=== PATIENT | female | born 1955 | race Caucasian/White ===

== ENCOUNTER 2016-12-08 05:44 | Day surgery (SDC) | payer BC ==
[~2016-12-08] VITALS: Ht 167.6 cm; Wt 57.7 kg
[~2016-12-08 05:44] MED LIST: ASPI-131; CETI-115 PO; EMOL1CRE VAGINALLY; FOLI1TAB15 PO; HYDR200T PO; IBUP200T53; METH2.5T6 PO; MULT-206 PO; MULT-934 PO; PSEU30TA PO; [UNRECOGNIZED DRUG - CODE] PO; [UNRECOGNIZED DRUG - CODE] PO
--- OUTSIDE RECORDS SUMMARY | 2016-12-08 05:49 | XMS REPORT | Referral Summary ---
Author Author [facility] Organization [facility] Address Unknown Phone Unavailable Care Team Providers Care Meteorology Instructor Name Role Phone Ashok Daniels Primary Care Physician [phone] Encounter [facility] [id number] Date(s): 10/01/15 - 10/01/15 [facility] [address] [place], [place] [address] Discharge Diagnosis: Rheumatoid arthritis Discharge Diagnosis: Perennial non-allergic rhinitis Discharge Diagnosis: Dysfunction of left Eustachian tube Discharge Disposition: 01-Home or Self Care Attending Physician: Finn Cazares MD Admitting Physician: Finn Cazares MD Vital Signs No data available for this section Problem List Condition Effective Dates Status Health Status Informant Anxiety(Confirmed) Resolved Rheumatoid Active arthritis(Confirmed) Allergies, Adverse Reactions, Alerts No Known Allergies Medications diclofenac sodium 50 mg oral delayed release tablet See Instructions, TAKE ONE TABLET BY MOUTH TWICE A DAY NEEDED WITH FOOD, # 60 tabs, 2 Refill(s), Pharmacy: [facility] #[id number], can hold until next refill needed., TAKE ONE TABLET BY MOUTH TWICE A DAY NEEDED WITH FOOD Start Date: 06/23/15 Status: Ordered folic acid 1 mg oral tablet See Instructions, TAKE TWO TABLETS BY MOUTH ONCE A DAY, # 180 tabs, 3 Refill(s) , Pharmacy: [facility] #[id number], can hold until next refill needed, TAKE TWO TABLETS BY MOUTH ONCE A DAY Start Date: 06/23/15 Status: Ordered methotrexate 2.5 mg oral tablet 12.5 mg 5 tabs, Oral, qWeek, # 25 tabs, 3 Refill(s), Pharmacy: [facility] #[id number], can hold until next refill needed., 5 tabs Oral qWeek Start Date: 06/23/15 Status: Ordered Results No data available for this section Immunizations Vaccine Date Refusal Reason influenza virus vaccine, inactivated1 06/12/14 1Result Comment: [06/12/2014] See scanned document. Procedures Procedure Date Related Diagnosis Body Site Nasal endoscopy, diagnostic, unilateral or 10/01/15 bilateral (separate procedure).. Bunion surgery w/metal pin 2009 Social History Social History Type Response Smoking Status Never smoker Assessment and Plan Extracted from: Title: Office Visit Note Author: Finn Cazares MD Date: 10/01/15 Assessment/Plan 1.Perennial non-allergic rhinitis Ordered: Nasal Endoscopy, Diagnostic, Unilateral Or Bilateral (Separate Procedure) 58110 2.Dysfunction of left Eustachian tube Ordered: Office Visit Level 3 Est 61697 Pure Tone Audiometry (Threshold); Air [facility] Bone 33152 Tympanometry (Impedance Testing) 57811 3.Rheumatoid arthritis Ordered: Office Visit Level 3 Est 61221
--- OUTSIDE RECORDS SUMMARY | 2016-12-08 05:49 | XMS REPORT | Referral Summary ---
Author Organization Unknown Address Unknown Phone Unavailable Care Team Providers Care E Commerce Marketing Analyst Name Role Phone Ashok Daniels Primary Care Physician [phone] Encounter [facility] [id number] Date(s): 10/20/14 - 10/20/14 [facility] Rhe[facility]ology [address], [place] [address] Discharge Diagnosis: Encounter for long-term (current) use of high-risk medication Discharge Diagnosis: Rheumatoid arthritis Discharge Diagnosis: Osteopenia Discharge Disposition: Home or Self Care Attending Physician: Bertha Cummins MD Admitting Physician: Bertha Cummins MD Referring Physician: Evan Daniels MD Vital Signs Most recent to 1 oldest [Reference Range]: Temperature Oral 36.7 degC [35.8-37.3 degC] (10/20/14 2:49 PM) Peripheral Pulse 70 bpm Rate [60-100 bpm] (10/20/14 2:49 PM) Blood Pressure 108/70 mmHg [90-140/60-90 mmHg] (10/20/14 2:49 PM) Problem List Condition Effective Dates Status Health Status Informant Anxiety(Confirmed) Active Rheumatoid Active arthritis(Confirmed) Allergies, Adverse Reactions, Alerts No Known Medication Allergies Medications diclofenac sodium 50 mg oral delayed release tablet See Instructions, TAKE ONE TABLET BY MOUTH TWICE A DAY NEEDED WITH FOOD, # 60 tabs, 5 Refill(s), eRx: [facility] #[id number], TAKE ONE TABLET BY MOUTH TWICE A DAY NEEDED WITH FOOD Special Instructions: TAKE ONE TABLET BY MOUTH TWICE A DAY NEEDED WITH FOOD Start Date: 01/22/14 Status: Ordered folic acid 1 mg oral tablet See Instructions, TAKE TWO TABLETS BY MOUTH ONCE A DAY, # 180 tabs, 1 Refill(s) , eRx: [facility] #[id number], TAKE TWO TABLETS BY MOUTH ONCE A DAY Special Instructions: TAKE TWO TABLETS BY MOUTH ONCE A DAY Start Date: 09/22/14 Status: Ordered methotrexate 2.5 mg oral tablet 6 tabs, Oral, qWeek, # 30 tabs, 2 Refill(s), Pharmacy: [facility] #[id number] , Please note decrease in dose. With next refill, does not need at this time., 6 tabs Oral qWeek Start Date: 10/20/14 Status: Ordered Results Hematology Most recent to 1 oldest [Reference Range]: WBC [4.8-10.8 K/uL] 5.5 K/uL (10/20/14 3:24 PM) RBC [4.00-5.20 M/uL] 4.57 M/uL (10/20/14 3:24 PM) Hgb [12.0-16.0 12.0 gm/dL gm/dL] (10/20/14 3:24 PM) Hct [37.0-47.0 %] 38.6 % (10/20/14 3:24 PM) MCV [82.0-99.0 fL] 84.5 fL (10/20/14 3:24 PM) MCH [27.0-32.0 pg] 26.3 pg *LOW* (10/20/14 3:24 PM) MCHC [32.0-36.0 31.1 gm/dL gm/dL] *LOW* (10/20/14 3:24 PM) RDW [11.5-14.5 %] 14.7 % *HI* (10/20/14 3:24 PM) Platelet [150-400 266 K/uL K/uL] (10/20/14 3:24 PM) MPV [8.8-14.8 fL] 9.8 fL (10/20/14 3:24 PM) Immature 0.2 % Granulocytes (10/20/14 3:24 PM) [0.0-1.0 %] Neutrophils [51-75 64 % %] (10/20/14 3:24 PM) Lymphocytes [20-46 23 % %] (10/20/14 3:24 PM) Monocytes [4-11 %] 11 % (10/20/14 3:24 PM) Eosinophils [0-4 %] 1 % (10/20/14 3:24 PM) Basophils [0-2 %] 0 % (10/20/14 3:24 PM) Neutro Absolute 3.47 THOUS [1.90-7.00 THOUS] (10/20/14 3:24 PM) Lymph Absolute 1.28 THOUS [0.80-3.30 THOUS] (10/20/14 3:24 PM) Frontier Absolute 0.62 THOUS [0.30-1.00 THOUS] (10/20/14 3:24 PM) Eos Absolute 0.06 THOUS [0.00-0.50 THOUS] (10/20/14 3:24 PM) Baso Absolute 0.02 THOUS [0.00-0.20 THOUS] (10/20/14 3:24 PM) Chemistry Most recent to 1 oldest [Reference Range]: Sodium Lvl [135-144 142 mEq/L mEq/L] (10/20/14 3:24 PM) Potassium Lvl 4.1 mEq/L [3.5-5.2 mEq/L] (10/20/14 3:24 PM) Chloride [99-111 106 mEq/L mEq/L] (10/20/14 3:24 PM) CO2 [22-31 mEq/L] 25 mEq/L (10/20/14 3:24 PM) AGAP [3-20] 11 (10/20/14 3:24 PM) BUN [10-20 mg/dL] 13 mg/dL (10/20/14 3:24 PM) Glucose Lvl [70-99 95 mg/dL mg/dL] (10/20/14 3:24 PM) Creatinine Lvl 0.77 mg/dL [0.57-1.11 mg/dL] (10/20/14 3:24 PM) eGFR [>60 mL/min] >60 mL/min 1 (10/20/14 3:24 PM) Calcium Lvl 10.0 mg/dL [8.9-10.5 mg/dL] (10/20/14 3:24 PM) Albumin Lvl [3.5-5.0 4.5 gm/dL gm/dL] (10/20/14 3:24 PM) Total Protein 7.1 gm/dL [6.2-8.1 gm/dL] (10/20/14 3:24 PM) Globulin [1.8-4.0 2.6 gm/dL gm/dL] (10/20/14 3:24 PM) ALT [0-55 unit/L] 36 unit/L (10/20/14 3:24 PM) AST [5-34 unit/L] 40 unit/L *HI* (10/20/14 3:24 PM) Alk Phos [40-150 74 unit/L unit/L] (10/20/14 3:24 PM) Bili Total [0.2-1.2 0.5 mg/dL mg/dL] (10/20/14 3:24 PM) 1Result Comment: Multiply eGFR results by 1.21 for race. Immunizations Vaccine Date Refusal Reason influenza virus vaccine, inactivated1 06/12/14 1Result Comment: [06/12/2014] See scanned document. Procedures Procedure Date Related Diagnosis Body Site Bunionectomy Social History Social History Type Response Smoking Status Never smoker Assessment and Plan No data available for this section
--- OUTSIDE RECORDS SUMMARY | 2016-12-08 05:49 | XMS REPORT | Referral Summary ---
Author Author [facility] Organization [facility] Address Unknown Phone Unavailable Care Team Providers Care It Sales Executive Name Role Phone Daniels Ashok Primary Care Physician [phone] Encounter [facility] [id number] Date(s): 03/01/16 - 03/01/16 [facility] [address], [place] [address] Discharge Diagnosis: High risk medication use Discharge Diagnosis: Other specified disorders of bone density and structure, other site Discharge Diagnosis: Osteopenia Discharge Diagnosis: Other specified rheumatoid arthritis, multiple sites Discharge Disposition: 01-Home or Self Care Attending Physician: Bertha Cummins MD Admitting Physician: Bertha Cummins MD Vital Signs Most recent to 1 oldest [Reference Range]: Temperature Oral 36.5 degC [35.8-37.3 degC] (03/01/16 9:08 AM) Peripheral Pulse 66 bpm Rate [60-100 bpm] (03/01/16 9:08 AM) Respiratory Rate 18 br/min [14-20 br/min] (03/01/16 9:08 AM) Blood Pressure 102/64 mmHg [90-140/60-90 mmHg] (03/01/16 9:08 AM) Problem List Condition Effective Dates Status Health Status Informant Anxiety(Confirmed) Resolved Osteopenia(Confirmed Active ) Rheumatoid Active arthritis(Confirmed) Allergies, Adverse Reactions, Alerts No Known Allergies Medications diclofenac sodium 50 mg oral delayed release tablet See Instructions, TAKE ONE TABLET BY MOUTH TWICE A DAY NEEDED WITH FOOD, # 60 tabs, 2 Refill(s), Pharmacy: [facility] #[id number], can hold until next refill needed., TAKE ONE TABLET BY MOUTH TWICE A DAY NEEDED WITH FOOD Start Date: 03/01/16 Status: Ordered folic acid 1 mg oral tablet See Instructions, TAKE TWO TABLETS BY MOUTH ONCE A DAY, # 180 tabs, 3 Refill(s) , Pharmacy: [facility] #[id number], can hold until next refill needed, TAKE TWO TABLETS BY MOUTH ONCE A DAY Start Date: 03/01/16 Status: Ordered methotrexate 2.5 mg oral tablet 12.5 mg 5 tabs, Oral, qWeek, please note the change in dose. deactivate prior, # 25 tabs, 3 Refill(s), Pharmacy: [facility] #[id number], please note change in dose. deactivate prior., 5 tabs Oral qWeek,Instr:please note the change in dose. deactivat... Start Date: 03/01/16 Status: Ordered Results Hematology Most recent to 1 oldest [Reference Range]: WBC [4.8-10.8 4.9 10*3/uL 10*3/uL] (03/01/16 9:34 AM) RBC [4.00-5.20] 4.11 (03/01/16 9:34 AM) Hgb [12.0-16.0 10.0 gm/dL gm/dL] *LOW* (03/01/16 9:34 AM) Hct [37.0-47.0 %] 32.3 % *LOW* (03/01/16 9:34 AM) MCV [82.0-99.0 fL] 78.6 fL *LOW* (03/01/16 9:34 AM) MCH [27.0-32.0 pg] 24.3 pg *LOW* (03/01/16 9:34 AM) MCHC [32.0-36.0 31.0 gm/dL gm/dL] *LOW* (03/01/16 9:34 AM) RDW [11.5-14.5 %] 17.5 % *HI* (03/01/16 9:34 AM) Platelet [150-400 311 10*3/uL 10*3/uL] (03/01/16 9:34 AM) MPV [8.8-14.8 fL] 10.0 fL (03/01/16 9:34 AM) Immature 0.0 % Granulocytes (03/01/16 9:34 AM) [0.0-1.0 %] Neutrophils [51-75 61 % %] (03/01/16 9:34 AM) Lymphocytes [20-46 25 % %] (03/01/16 9:34 AM) Monocytes [4-11 %] 14 % *HI* (03/01/16 9:34 AM) Eosinophils [0-4 %] 1 % (03/01/16 9:34 AM) Basophils [0-2 %] 0 % (03/01/16 9:34 AM) Neutro Absolute 2.94 10*3 [1.90-7.00 10*3] (03/01/16 9:34 AM) Lymph Absolute 1.19 10*3 [0.80-3.30 10*3] (03/01/16 9:34 AM) [place] Absolute 0.68 10*3 [0.30-1.00 10*3] (03/01/16 9:34 AM) Eos Absolute 0.04 10*3 [0.00-0.50 10*3] (03/01/16 9:34 AM) Baso Absolute 0.01 10*3 [0.00-0.20 10*3] (03/01/16 9:34 AM) Chemistry Most recent to 1 oldest [Reference Range]: Sodium Lvl [135-144 139 mEq/L mEq/L] (03/01/16 9:34 AM) Potassium Lvl 4.4 mEq/L [3.5-5.2 mEq/L] (03/01/16 9:34 AM) Chloride [99-111 107 mEq/L mEq/L] (03/01/16 9:34 AM) CO2 [22-31 mEq/L] 26 mEq/L (03/01/16 9:34 AM) AGAP [3-20] 6 (03/01/16 9:34 AM) BUN [10-20 mg/dL] 13 mg/dL (03/01/16 9:34 AM) Glucose Lvl [70-99 74 mg/dL mg/dL] (03/01/16 9:34 AM) Creatinine Lvl 0.80 mg/dL [0.57-1.11 mg/dL] (03/01/16 9:34 AM) eGFR [>60 mL/min] >60 mL/min 1 (03/01/16 9:34 AM) Calcium Lvl 9.4 mg/dL [8.9-10.5 mg/dL] (03/01/16 9:34 AM) Albumin Lvl [3.4-4.8 4.4 gm/dL gm/dL] (03/01/16 9:34 AM) Total Protein 6.7 gm/dL 2 [6.0-7.6 gm/dL] (03/01/16 9:34 AM) Globulin [1.8-4.0 2.3 gm/dL gm/dL] (03/01/16 9:34 AM) ALT [0-55 U/L] 20 U/L (03/01/16 9:34 AM) AST [5-34 U/L] 26 U/L (03/01/16 9:34 AM) Alk Phos [40-150 69 U/L U/L] (03/01/16 9:34 AM) Bili Total [0.2-1.2 0.7 mg/dL mg/dL] (03/01/16 9:34 AM) 1Result Comment: Multiply eGFR results by 1.21 for race. 2Result Comment: Please note new reference range for adult Protein. Immunizations Vaccine Date Refusal Reason influenza virus vaccine, inactivated1 06/12/14 1Result Comment: [06/12/2014] See scanned document. Procedures Procedure Date Related Diagnosis Body Site Collection of venous blood by venipuncture 03/01/16 Bunion surgery w/metal pin 2009 Social History Social History Type Response Smoking Status Never smoker Assessment and Plan Extracted from: Title: Ambulatory Patient Education Author: Bertha Cummins MD Date: Family Medicine Arthritis, Nonspecific Arthritis is inflammation of a joint. This usually means pain, redness, warmth or swelling are present. One or more joints may be involved. There are a number of types of arthritis. Your caregiver may not be able to tell what type of arthritis you have right away. CAUSES The most common cause of arthritis is the wear and tear on the joint ( osteoarthritis). This causes damage to the cartilage, which can break down over time. The knees, hips, back and neck are most often affected by this type of arthritis. Other types of arthritis and common causes of joint pain include: Sprains and other injuries near the joint. Sometimes minor sprains and injuries cause pain and swelling that develop hours later. Rheumatoid arthritis. This affects hands, feet and knees. It usually affects both sides of your body at the same time. It is often associated with chronic ailments, fever, weight loss and general weakness. Crystal arthritis. Gout and pseudo gout can cause occasional acute severe pain, redness and swelling in the foot, ankle, or knee. Infectious arthritis. Bacteria can get into a joint through a break in overlying skin. This can cause infection of the joint. Bacteria and viruses can also spread through the blood and affect your joints. Drug, infectious and allergy reactions. Sometimes joints can become mildly painful and slightly swollen with these types of illnesses. SYMPTOMS Pain is the main symptom. Your joint or joints can also be red, swollen and warm or hot to the touch. You may have a fever with certain types of arthritis, or even feel overall ill. The joint with arthritis will hurt with movement. Stiffness is present with some types of arthritis. DIAGNOSIS Your caregiver will suspect arthritis based on your description of your symptoms and on your exam. Testing may be needed to find the type of arthritis: Blood and sometimes urine tests. X-ray tests and sometimes CT or MRI scans. Removal of fluid from the joint (arthrocentesis) is done to check for bacteria, crystals or other causes. Your caregiver (or a specialist) will numb the area over the joint with a local anesthetic, and use a needle to remove joint fluid for examination. This procedure is only minimally uncomfortable. Even with these tests, your caregiver may not be able to tell what kind of arthritis you have. Consultation with a specialist (take out waitress) may be helpful. TREATMENT Your caregiver will discuss with you treatment specific to your type of arthritis. If the specific type cannot be determined, then the following general recommendations may apply. Treatment of severe joint pain includes: Rest. Elevation. Anti-inflammatory medication (for example, ibuprofen) may be prescribed. Avoiding activities that cause increased pain. Only take hwyi-haz-bvnqzny or prescription medicines for pain and discomfort as recommended by your caregiver. Cold packs over an inflamed joint may be used for 10 to 15 minutes every hour. Hot packs sometimes feel better, but do not use overnight. Do not use hot packs if you are diabetic without your caregiver's permission. A cortisone shot into arthritic joints may help reduce pain and swelling. Any acute arthritis that gets worse over the next 1 to 2 days needs to be looked at to be sure there is no joint infection. Long-term arthritis treatment involves modifying activities and lifestyle to reduce joint stress jarring. This can include weight loss. Also, exercise is needed to nourish the joint cartilage and remove waste. This helps keep the muscles around the joint strong. HOME CARE INSTRUCTIONS Do not take aspirin to relieve pain if gout is suspected. This elevates uric acid levels. Only take qztf-fiv-mkfuwuz or prescription medicines for pain, discomfort or fever as directed by your caregiver. Rest the joint as much as possible. If your joint is swollen, keep it elevated. Use crutches if the painful joint is in your leg. Drinking plenty of fluids may help for certain types of arthritis. Follow your caregiver's dietary instructions. Try low-impact exercise such as: Swimming. Water aerobics. Biking. Walking. Morning stiffness is often relieved by a warm shower. Put your joints through regular oatqx-qz-pxxrii. SEEK MEDICAL CARE IF: You do not feel better in 24 hours or are getting worse. You have side effects to medications, or are not getting better with treatment. SEEK IMMEDIATE MEDICAL CARE IF: You have a fever. You develop severe joint pain, swelling or redness. Many joints are involved and become painful and swollen. There is severe back pain and/or leg weakness. You have loss of bowel or bladder control. This information is not intended to replace advice given to you by your health care provider. Make sure you discuss any questions you have with your health care provider. Document Released: 09/06/2005 Document Revised: 08/20/2015 Document Reviewed: [facility]. Ophthalmology Basics of Medicine Management WHAT SHOULD I DO WHEN I AM TAKING MEDICINES? Read all of the labels and the inserts that come with your medicines. Review the information often. Talk with your pharmacist if you notice a change in the size, color, or shape of your medicines. Try to get all of your medicines at one pharmacy. The pharmacist will have all your information and will understand possible drug interactions. Ask your health care provider any questions that you have about your prescribed medicines and any eqxn-pxx-xdkvair medicines, vitamins, and herbal or dietary supplements that you take. It is important to make sure that nothing will interact with any of your prescribed medicines. WHAT SHOULD I KNOW ABOUT MY MEDICINES? Know the potential side effects for each medicine that you take. Know what each of your medicines looks like. This includes size, color, and shape. If you are getting confused and having trouble recognizing your different medicines, ask your health care provider or pharmacist about changing your medicines or helping you to identify them more easily. HOW CAN I TAKE MY MEDICINES SAFELY? Take medicines only as directed by your health care provider. Do not take more of your medicine than instructed. Do not take anyone else's medicines. Do not share your medicines with other people. Do not stop taking your medicines unless you have talked about that with your health care provider. You may need to avoid alcohol or certain foods or liquids with one or more of your medicines. Follow your health care provider's instructions. Do not split, mash, or chew your medicines unless your health care provider tells you to do so. Tell your health care provider if you have trouble swallowing your medicines. For every liquid medicine, use the dosing container that was provided. HOW SHOULD I ORGANIZE MY MEDICINES? Use a tool, such as a weekly pillbox, a written chart from your health care provider, a notebook, or your own calendar to organize your medicine schedule. If you have trouble recognizing your different medicines, keep them in their original bottles. Create reminders for taking your medicines. Use sticky notes, or use alarms on your watch, mobile device, or phone calendar. Your organization system should help you to remember the following information about each medicine: Name of the medicine. Dosage. Schedule. This includes the day and time when it should be taken. Appearance. This includes color, shape, size, and stamp. How to take your medicines. You may need to take them with or without certain foods, on an empty stomach, with fluids, or by following some other instruction. More advanced medicine management systems are also available. These offer weekly or monthly options that are complete with storage, alarms, and visual and audio prompts. Review your medicine schedule with a family member, friend, or caregiver. Other household members should understand your medicines. If you have trouble reading the names of your different medicines, ask your pharmacist to provide your medicines in containers with large print. If you take any medicines on an "as needed" basis, such as medicines for nausea or pain, it is important that you remember what you have taken and when you did so. Write down the following information each time you take an "as needed" medicine: the name, the dosage, and the date and time that you took it. HOW SHOULD I PLAN AHEAD FOR TRAVEL? Take your pillbox, medicines, and organization system with you when you travel. Have your medicines refilled before you leave for travel. This will ensure that you do not run out of your medicines while you are away from home. Always carry an updated list of your medicines with you. If there is an emergency, a respondent can quickly see what medicines you are taking. HOW SHOULD I STORE AND DISCARD MY MEDICINES? Store medicines in a cool, dry area away from light or as directed by your pharmacist or health care provider. The bathroom is not a good place for medicine storage because of heat and humidity. Store your medicines away from chemicals, medicines for your pet, and medicines of other household members. Keep medicines where children cannot reach them. Do not leave them on counters or bedside tables. Store them in high cabinets or on high shelves. Check expiration dates regularly. Do not take medicines. Discard medicines that are older than the expiration date. Learn about the best way to dispose of each medicine that you take. Find out if your local government recycling program, hospital, or pharmacy has a medicine take-back program for safe disposal. If not, some medicines may be mixed with inedible substances and thrown away in the trash in a sealed bag or empty container. WHAT SHOULD I REMEMBER? Tell your health care provider if you experience side effects, you have new symptoms, or you have other concerns. There may be dosing changes or alternative medicines that would be better for you. Review your medicines regularly with your health care provider. Ask if you need to continue to take each medicine, and discuss how well each one is working. Medicines, diet, medical conditions, weight changes, and other habits can all affect how medicines work. Refill your medicines early so that you do not risk running out. In case of an accidental overdose, call your local Poison Control Center at or visit your local emergency department immediately. This is important. WHAT SHOULD I KNOW ABOUT GIVING MEDICINES TO MY CHILD? Use positive reinforcement to help your child take necessary medicines. Try singing, cuddling, and rewards. Use only the syringes, droppers, dosing spoons, or dosing cups from your child's health care provider or pharmacist. Always wash your hands before giving medicines. Learn about the medicine policies at your child's school. Meet with the school nurse to review your child's medicine schedule in detail. Do not send oral medicines to school with your child. If your child has trouble taking medicine, forgets a dose, or spits it up , talk with his or her health care provider. Do not give qphe-clg-agzbfvt cough and cold medicines to your child who is younger than 2 years old, unless directed by his or her health care provider. Do not give your child aspirin unless instructed to do so by your child' s product responsibility liaison or environmental educator. Make sure that your child knows how to use an inhaler properly, if needed. This information is not intended to replace advice given to you by your health care provider. Make sure you discuss any questions you have with your health care provider. Document Released: 11/14/2011 Document Revised: 08/20/2015 Document Reviewed: [facility] Patient Information 2016 [employer]. No follow up information was provided. Extracted from: Title: Office Visit Note Author: Bertha Cummins MD Date: 03/01/16 Assessment/Plan 1.Other specified rheumatoid arthritis, multiple sites She has mildly active disease. We will increase the methotrexate 12.5 mg. continue diclofenac as needed. I will check a CRP today. Ordered: C-Reactive Protein (CRP) CBC w/ Differential Comprehensive Metabolic Panel 2.Osteopenia, We discussed taking calciumand also vitamin D. Other specified disorders of bone density and structure, other site Ordered: C-Reactive Protein (CRP) CBC w/ Differential Comprehensive Metabolic Panel 3.High risk medication use I will check her blood counts liver tests today. She did donate blood recently which may affect her blood counts. Follow-up in 4 months. Ordered: C-Reactive Protein (CRP) CBC w/ Differential Comprehensive Metabolic Panel
--- OUTSIDE RECORDS SUMMARY | 2016-12-08 05:49 | XMS REPORT | Continuity of Care Document ---
Author Author Marita Martinez RN Ambulatory Address [address] [place] [address] Phone Care Team Providers Care Textile Stylist Name Role Phone Evan Daniels PP Unavailable Payers Payer name Insurance type Covered libertarian ID Authorization(s) Unknown Problems Condition Effective Dates (start - stop) Clinical Status Rheumatoid Arthritis - *Chronic Rheumatoid Arthritis - *Chronic Family History Family Member Diagnosis Age At Onset Status Mother (Unknown) CVA (Stroke) Yes Father (Unknown) bleeding ulcers Yes Sister (Unknown) Cancer Yes Mother (Unknown) Cancer Yes Social History Social History Element Description Quantity alcohol 1 drink Allergies, Adverse Reactions, Alerts Substance Reaction Severity Status Unknown Medications Medication Instructions Dosage Effective Dates (start - stop) Status diclofenac sodium 50 mg tablet,delayed release take 1 tablet (50MG) by oral route 2 times every day as needed with food 50 MG - Active Plaquenil 200 mg tablet take 2 (400MG) by oral route every day 400 MG - Active Immunizations Vaccine Date Status Comments Unknown Results Test Name Date and Time Measure Units Reference Range Abnormal Flag Comments Panel Description: CBC WBC 09:11:00 4.7 K/uL 4.8-10.8 L RBC 09:11:00 4.80 M/uL 4.00-5.20 HGB 09:11:00 14.2 g/dl 12.0-16.0 HCT 09:11:00 43.3 % 37.0-47.0 MCV 09:11:00 90.2 fL 82.0-99.0 MCH 09:11:00 29.6 pg 27.0-32.0 MCHC 09:11:00 32.8 g/dL 32.0-36.0 RDW 09:11:00 12.7 % 11.5-14.5 MPV 09:11:00 10.0 fL 8.8-14.8 Platelet Count 09:11:00 272 K/uL 150-400 Immature Granulocytes 09:11:00 0.2 % 0.0-1.0 Absolute Neutrophils 09:11:00 2.79 THOUS 1.90-7.00 Absolute Lymphocytes 09:11:00 1.22 THOUS 0.80-3.30 Absolute Monocytes 09:11:00 0.58 THOUS 0.30-1.00 Absolute Eosinophils 09:11:00 0.07 THOUS 0.00-0.50 Absolute Basophils 09:11:00 0.01 THOUS 0.00-0.20 Neutrophils 09:11:00 60 % 51-75 Lymphocytes 09:11:00 26 % 20-46 Monocytes 09:11:00 12 % 4-11 H Eosinophils 09:11:00 2 % 0-4 Basophils 09:11:00 0 % 0-2 Testing performed at [facility] Reference Lab [address] [facility] [address] [employer] Kaveh Rangel MD Panel Description: Chemistry Profile Glucose 09:11:00 81 mg/dL 70-99 BUN 09:11:00 13 mg/dL 10-20 Creatinine 09:11:00 0.83 mg/dL 0.57-1.11 Calcium 09:11:00 9.9 mg/dL 8.9-10.5 Sodium 09:11:00 142 mEq/L 135-144 Potassium 09:11:00 4.1 mEq/L 3.5-5.2 Chloride 09:11:00 106 mEq/L 99-111 CO2 09:11:00 30 mEq/L 22-31 Albumin 09:11:00 4.5 g/dL 3.5-5.0 Bilirubin Total 09:11:00 0.6 mg/dL 0.2-1.2 Alkaline Phosphatase 09:11:00 71 U/L 40-150 Protein 09:11:00 7.0 g/dL 6.4-8.3 ALT (SGPT) 09:11:00 19 U/L 0-55 AST (SGOT) 09:11:00 26 U/L 5-34 Anion Gap 09:11:00 6 3-20 Globulin 09:11:00 2.5 g/dL 1.8-4.0 Testing performed at [facility] Reference Lab [address] [place] [address] [employer] Kaveh Rangel MD Panel Description: EGFR-[facility] eGFR 09:11:00 >60 mL/min >60 Multiply eGFR results by 1.21 for race.Testing performed at [facility] Reference [facility] [address] [place] [address] [employer] Kaveh Rangel MD Panel Description: C-Reactive Nlavxqa-HC-WQP C-Reactive Protein 09:11:00 <0.5 mg/dL <0.5 Testing performed at [facility] [address] [place] [address] [employer] Kaveh Rangel MD Panel Description: G-6-PD-QT Blood and RBC-AMS G-6-PD, Quant, RBC 09:11:00 10.4 U/g Hb Reference Range: 8.8 - 13.4Test Performed by:[address] [id number] Director: Andrea Paiz III, M.D.Testing performed at [address] [address] [employer] Andrea Paiz MD Vital Signs Date / Time: Height Weight Pulse Rate Blood Pressure Temperature /08:07:00 66.00 in 122.00 lbs 65 /min 118/72 mm[Hg] 98.4 F Procedures Procedure Date Unknown Encounters Encounter Location Date Patient Visit [facility] Patient Visit [facility] Patient Visit [facility] Advance Directives Directive Effective Date Unknown
--- OUTSIDE RECORDS SUMMARY | 2016-12-08 05:50 | XMS REPORT | Referral Summary ---
Author Author [facility] Organization [facility] Address Unknown Phone Unavailable Care Team Providers Care Weight Reducing Technician Name Role Phone Ashok Daniels Primary Care Physician [phone] Encounter [facility] [id number] Date(s): 09/17/15 - 09/17/15 [facility] [address] [place], [place] [address] Discharge Diagnosis: Rheumatoid arthritis Discharge Diagnosis: Deviated nasal septum Discharge Diagnosis: Acute otitis media Discharge Disposition: -Home or Self Care Attending Physician: Finn Cazares MD Admitting Physician: Finn Cazares MD Referring Physician: Huseyin Ceh MD Vital Signs No data available for this section Problem List Condition Effective Dates Status Health Status Informant Anxiety(Confirmed) Resolved Rheumatoid Active arthritis(Confirmed) Allergies, Adverse Reactions, Alerts No Known Allergies Medications cefdinir 300 mg oral capsule 300 mg 1 caps, Oral, q12hr, # 20 caps, 0 Refill(s), Pharmacy: [facility] # [id number], 1 caps Oral q12hr,x10 days Start Date: 09/17/15 Stop Date: 09/27/15 Status: Ordered diclofenac sodium 50 mg oral delayed release tablet See Instructions, TAKE ONE TABLET BY MOUTH TWICE A DAY NEEDED WITH FOOD, # 60 tabs, 2 Refill(s), [facility] #[id number], can hold until next refill needed., TAKE ONE TABLET BY MOUTH TWICE A DAY NEEDED WITH FOOD Start Date: 06/23/15 Status: Ordered folic acid 1 mg oral tablet See Instructions, TAKE TWO TABLETS BY MOUTH ONCE A DAY, # 180 tabs, 3 Refill(s) , [facility] #[id number], can hold until next refill needed, TAKE TWO TABLETS BY MOUTH ONCE A DAY Start Date: 06/23/15 Status: Ordered methotrexate 2.5 mg oral tablet 12.5 mg 5 tabs, Oral, qWeek, # 25 tabs, 3 Refill(s), Pharmacy: [facility] #[id number], can hold until next refill needed., 5 tabs Oral qWeek Start Date: 06/23/15 Status: Ordered Results No data available for this section Immunizations Vaccine Date Refusal Reason influenza virus vaccine, inactivated1 06/12/14 1Result Comment: [06/12/2014] See scanned document. Procedures Procedure Date Related Diagnosis Body Site Bunion surgery w/metal pin 2008 Social History Social History Type Response Smoking Status Never smoker Assessment and Plan Extracted from: Title: Ambulatory Patient Education Author: Finn Cazares MD Date: Family Medicine Pressure Equalization Tubes Pressure equalizing tubes (PE tubes) are small tubes that are placed through a tiny surgical cut in the eardrum. PE tubes are also called tympanostomy tubes or ventilation tubes. These tubes are usually placed because of: Frequent middle ear infections. Chronic fluid in the middle ear. Hearing or speech problems due to repeated middle ear infections or fluid build up. PE tubes help prevent: Infections Fluid build up. It is believed tubes do this because they keep the middle ear space full of air (ventilated). There are two kinds of PE tubes: Short term these tubes usually last only 6 to 9 months. They fall out on their own. meterman these stay in place longer than short term tubes. Often they have to be removed by the surgeon. Most PE tubes fall out after a while into the outer ear canal. The eardrum seals itself shut. The tube is easily removed from the ear canal by a caregiver or it falls out on its own. Children are usually given a mild, general anesthetic before surgery. This is something that puts them to sleep. Older children or adults may only need a local anesthetic. This means medicines are used to make the eardrum numb. BEFORE THE PROCEDURE Follow the instructions given by your surgeon as to how to prepare for this surgery. LET YOUR CAREGIVER KNOW ABOUT: Previous reactions to anesthesia. Reactions to anesthesia by anyone in your family. RISKS AND COMPLICATIONS There are few risks to this simple surgery. The anesthesia specialist will discuss the risks of anesthesia. Sometimes the eardrum does not heal after the tube falls out. If a hole in the eardrum persists, the hole can be repaired by minor surgery. AFTER THE PROCEDURE Follow your surgeon's instructions for care after surgery. Often eardrops are prescribed. There may be fluid draining from the ear for a few days after the surgery. Fluid may also drain in the future with colds. If hearing was decreased due to fluid build up, there should be an improvement right after the surgery. HOME CARE INSTRUCTIONS Because the PE tube opens a tiny hole between the outer and the middle ear, water can accidentally travel into the middle ear from the outside. Your surgeon may suggest earplugs. It is best to avoid: Dunking the head in bath water. Diving. SEEK MEDICAL CARE IF: Ear drainage that looks thick, smells bad or is bloody. Decreased hearing. Balance problems. Ear pain. SEEK IMMEDIATE MEDICAL CARE IF: Redness, tenderness or swelling of the ear canal or ear itself. Document Released: 01/19/2003 Document Revised: 10/21/2012 Document Reviewed: [facility] Patient Information 2015 [employer] [facility]. This information is not intended to replace advice given to you by your health care provider. Make sure you discuss any questions you have with your health care provider. No follow up information was provided. Extracted from: Title: Consult Note Author: Finn Cazares MD Date: 09/17/15 Assessment/Plan 1.Acute otitis media 2.Deviated nasal septum 3.Rheumatoid arthritis
--- OUTSIDE RECORDS SUMMARY | 2016-12-08 05:50 | XMS REPORT | Referral Summary ---
Author Author [facility] Organization [facility] Address Unknown Phone Unavailable Care Team Providers Care Manager Asset Name Role Phone Daniels Ashok Primary Care Physician [phone] Encounter [facility] [id number] Date(s): 02/22/15 - 02/22/15 [facility] [address] [place], [place] [address] Discharge Diagnosis: Rheumatoid arthritis Discharge Diagnosis: Encounter for long-term (current) use of high-risk medication Discharge Disposition: 01-Home or Self Care Attending Physician: Bertha Cummins MD Admitting Physician: Bertha Cummins MD Vital Signs Most recent to 1 oldest [Reference Range]: Peripheral Pulse 77 bpm Rate [60-100 bpm] (02/22/15 8:26 AM) Blood Pressure 124/75 mmHg [90-140/60-90 mmHg] (02/22/15 8:26 AM) Problem List Condition Effective Dates Status Health Status Informant Anxiety(Confirmed) Active Rheumatoid Active arthritis(Confirmed) Allergies, Adverse Reactions, Alerts No Known Medication Allergies Medications diclofenac sodium 50 mg oral delayed release tablet See Instructions, TAKE ONE TABLET BY MOUTH TWICE A DAY NEEDED WITH FOOD, # 60 tabs, 5 Refill(s), eRx: [facility] #[id number], TAKE ONE TABLET BY MOUTH TWICE A DAY NEEDED WITH FOOD Start Date: 01/22/14 Status: Ordered folic acid 1 mg oral tablet See Instructions, TAKE TWO TABLETS BY MOUTH ONCE A DAY, # 180 tabs, eRx: [facility] #[id number], TAKE TWO TABLETS BY MOUTH ONCE A DAY Start Date: 04/20/15 Status: Ordered methotrexate 2.5 mg oral tablet 12.5 mg 5 tabs, Oral, qWeek, # 25 tabs, 1 Refill(s), Pharmacy: [facility] #[id number], Dose decreased to 5 tabs weekly, 5 tabs Oral qWeek Start Date: 05/12/15 Status: Ordered Results Hematology Most recent to 1 oldest [Reference Range]: WBC [4.8-10.8 4.8 10*3/uL 10*3/uL] (02/22/15 8:52 AM) RBC [4.00-5.20 4.51 10*6/uL 10*6/uL] (02/22/15 8:52 AM) Hgb [12.0-16.0 10.9 gm/dL gm/dL] *LOW* (02/22/15 8:52 AM) Hct [37.0-47.0 %] 35.1 % *LOW* (02/22/15 8:52 AM) MCV [82.0-99.0 fL] 77.8 fL *LOW* (02/22/15 8:52 AM) MCH [27.0-32.0 pg] 24.2 pg *LOW* (02/22/15 8:52 AM) MCHC [32.0-36.0 31.1 gm/dL gm/dL] *LOW* (02/22/15 8:52 AM) RDW [11.5-14.5 %] 16.7 % *HI* (02/22/15 8:52 AM) Platelet [150-400 298 10*3/uL 10*3/uL] (02/22/15 8:52 AM) MPV [8.8-14.8 fL] 10.2 fL (02/22/15 8:52 AM) Immature 0.2 % Granulocytes (02/22/15 8:52 AM) [0.0-1.0 %] Neutrophils [51-75 63 % %] (02/22/15 8:52 AM) Lymphocytes [20-46 24 % %] (02/22/15 8:52 AM) Monocytes [4-11 %] 12 % *HI* (02/22/15 8:52 AM) Eosinophils [0-4 %] 1 % (02/22/15 8:52 AM) Basophils [0-2 %] 0 % (02/22/15 8:52 AM) Neutro Absolute 3.04 10*3 [1.90-7.00 10*3] (02/22/15 8:52 AM) Lymph Absolute 1.14 10*3 [0.80-3.30 10*3] (02/22/15 8:52 AM) [place] Absolute 0.59 10*3 [0.30-1.00 10*3] (02/22/15 8:52 AM) Eos Absolute 0.05 10*3 [0.00-0.50 10*3] (02/22/15 8:52 AM) Baso Absolute 0.02 10*3 [0.00-0.20 10*3] (02/22/15 8:52 AM) Chemistry Most recent to 1 oldest [Reference Range]: Sodium Lvl [135-144 142 mEq/L mEq/L] (02/22/15 8:52 AM) Potassium Lvl 3.8 mEq/L [3.5-5.2 mEq/L] (02/22/15 8:52 AM) Chloride [99-111 107 mEq/L mEq/L] (02/22/15 8:52 AM) CO2 [22-31 mEq/L] 26 mEq/L (02/22/15 8:52 AM) AGAP [3-20] 9 (02/22/15 8:52 AM) BUN [10-20 mg/dL] 14 mg/dL (02/22/15 8:52 AM) Glucose Lvl [70-99 84 mg/dL mg/dL] (02/22/15 8:52 AM) Creatinine Lvl 0.79 mg/dL [0.57-1.11 mg/dL] (02/22/15 8:52 AM) eGFR [>60 mL/min] >60 mL/min 1 (02/22/15 8:52 AM) Calcium Lvl 9.8 mg/dL [8.9-10.5 mg/dL] (02/22/15 8:52 AM) Albumin Lvl [3.4-4.8 4.3 gm/dL gm/dL] (02/22/15 8:52 AM) Total Protein 6.9 gm/dL [6.2-8.1 gm/dL] (02/22/15 8:52 AM) Globulin [1.8-4.0 2.6 gm/dL gm/dL] (02/22/15 8:52 AM) ALT [0-55 U/L] 35 U/L (02/22/15 8:52 AM) AST [5-34 U/L] 36 U/L *HI* (02/22/15 8:52 AM) Alk Phos [40-150 69 U/L U/L] (02/22/15 8:52 AM) Bili Total [0.2-1.2 0.7 mg/dL mg/dL] (02/22/15 8:52 AM) 1Result Comment: Multiply eGFR results by 1.21 for race. Immunizations Vaccine Date Refusal Reason influenza virus vaccine, inactivated1 06/12/14 1Result Comment: [06/12/2014] See scanned document. Procedures Procedure Date Related Diagnosis Body Site Collection of venous blood by venipuncture 02/22/15 Bunion surgery w/metal pin 2009 Social History Social History Type Response Smoking Status Never smoker Assessment and Plan Extracted from: Title: Office Visit Note Author: Bertha Cummins MD Date: 02/22/15 Assessment/Plan 1.Rheumatoid arthritis She is doing well.There isno evidence of active disease on examination. We will continue methotrexate 15 mg. no changes noted needed this time. 2.Encounter for long-term (current) use of high-risk medication I will check her blood counts and liver tests today. Otherwise no toxicities noted. Follow-up in 4 months or sooner if needed.
--- OUTSIDE RECORDS SUMMARY | 2016-12-08 05:50 | XMS REPORT | Referral Summary ---
Author Author [facility] Organization [facility] Address Unknown Phone Unavailable Care Team Providers Care Hybrid Corn Breeder Name Role Phone Daniels Ashok Primary Care Physician [phone] Encounter [facility] [id number] Date(s): 02/22/15 - 02/22/15 [facility] [address], [place] [address] Discharge Diagnosis: Rheumatoid arthritis Discharge Diagnosis: Encounter [...] FOOD, # 60 tabs, 5 Refill(s), eRx: [facility] #[id number], TAKE ONE TABLET BY MOUTH TWICE A DAY NEEDED WITH FOOD Start Date: 01/22/14 Status: Ordered folic acid 1 mg oral tablet See Instructions, TAKE TWO TABLETS BY MOUTH ONCE A DAY, # 180 tabs, eRx: [facility] #[id number], TAKE TWO TABLETS BY MOUTH ONCE A DAY Start Date: 04/20/15 Status: Ordered methotrexate 2.5 mg oral tablet 12.5 mg 5 tabs, Oral, qWeek, # 25 tabs, 1 Refill(s), Pharmacy: [facility] #[id number], Dose decreased to 5 tabs weekly, 5 [...] 1.14 10*3 [0.80-3.30 10*3] (02/22/15 8:52 AM) [place] Absolute 0.59 10*3 [0.30-1.00 10*3] (02/22/15 8:52 [...]
--- OUTSIDE RECORDS SUMMARY | 2016-12-08 05:50 | XMS REPORT | Referral Summary ---
Author Author [facility] Organization [facility] Address Unknown Phone Unavailable Care Team Providers Care Component Technician Name Role Phone Daniels Ashok Primary Care Physician [phone] Encounter [facility] [id number] Date(s): 10/03/16 - 10/03/16 [facility] [address] [place], [place] [address] Discharge Diagnosis: Osteopenia Discharge Diagnosis: Other specified rheumatoid arthritis, multiple sites Discharge Diagnosis: High risk medication use Discharge Disposition: 01-Home or Self Care Attending Physician: Bertha Cummins MD Admitting Physician: Bertha Cummins MD Referring Physician: Bertha Cummins MD Vital Signs Most recent to 1 oldest [Reference Range]: Peripheral Pulse 68 bpm Rate [60-100 bpm] (10/03/16 1:03 PM) Blood Pressure 122/74 mmHg [90-140/60-90 mmHg] (10/03/16 1:03 PM) Problem List Condition Effective Dates Status Health Status Informant Anxiety(Confirmed) Resolved Osteopenia(Confirmed Active ) Rheumatoid Active arthritis(Confirmed) Allergies, Adverse Reactions, Alerts No Known Allergies Medications diclofenac sodium 50 mg oral delayed release tablet See Instructions, TAKE ONE TABLET BY MOUTH TWICE A DAY NEEDED WITH FOOD, # 60 tabs, 2 Refill(s), Pharmacy: [facility] #[id number], can hold until next refill needed., TAKE ONE TABLET BY MOUTH TWICE A DAY NEEDED WITH FOOD Start Date: 03/01/16 Status: Ordered folic acid 1 mg oral tablet See Instructions, TAKE TWO TABLETS BY MOUTH DAILY, # 180 tabs, 2 Refill(s), eRx : [facility] #[id number], TAKE TWO TABLETS BY MOUTH DAILY Start Date: 04/26/16 Status: Ordered methotrexate 2.5 mg oral tablet See Instructions, TAKE FIVE TABS BY MOUTH ONCE A WEEK, # 25 tabs, 3 Refill(s) Start Date: 10/03/16 Status: Ordered Results Hematology Most recent to 1 oldest [Reference Range]: WBC [4.8-10.8 5.8 10*3/uL 10*3/uL] (10/03/16 1:50 PM) RBC [4.00-5.20] 4.20 (10/03/16 1:50 PM) Hgb [12.0-16.0 11.8 gm/dL gm/dL] *LOW* (10/03/16 1:50 PM) Hct [37.0-47.0 %] 37.4 % (10/03/16 1:50 PM) MCV [82.0-99.0 fL] 89.0 fL (10/03/16 1:50 PM) MCH [27.0-32.0 pg] 28.1 pg (10/03/16 1:50 PM) MCHC [32.0-36.0 31.6 gm/dL gm/dL] *LOW* (10/03/16 1:50 PM) RDW [11.5-14.5 %] 15.3 % *HI* (10/03/16 1:50 PM) Platelet [150-400 256 10*3/uL 10*3/uL] (10/03/16 1:50 PM) MPV [8.8-14.8 fL] 9.5 fL (10/03/16 1:50 PM) Chemistry Most recent to 1 oldest [Reference Range]: Sodium Lvl [135-144 141 mEq/L mEq/L] (10/03/16 1:50 PM) Potassium Lvl 4.3 mEq/L [3.5-5.2 mEq/L] (10/03/16 1:50 PM) Chloride [99-111 107 mEq/L mEq/L] (10/03/16 1:50 PM) CO2 [22-31 mEq/L] 26 mEq/L (10/03/16 1:50 PM) AGAP [3-20] 8 (10/03/16 1:50 PM) BUN [10-20 mg/dL] 20 mg/dL (10/03/16 1:50 PM) Glucose Lvl [70-99 96 mg/dL mg/dL] (10/03/16 1:50 PM) Creatinine Lvl 0.79 mg/dL [0.57-1.11 mg/dL] (10/03/16 1:50 PM) eGFR [>60 mL/min] >60 mL/min 1 (10/03/16 1:50 PM) Calcium Lvl 9.4 mg/dL 2 [8.4-10.2 mg/dL] (10/03/16 1:50 PM) Albumin Lvl [3.4-4.8 4.1 gm/dL gm/dL] (10/03/16 1:50 PM) Total Protein 6.5 gm/dL [6.0-7.6 gm/dL] (10/03/16 1:50 PM) Globulin [1.8-4.0 2.4 gm/dL gm/dL] (10/03/16 1:50 PM) ALT [0-55 U/L] 18 U/L (10/03/16 1:50 PM) AST [5-34 U/L] 22 U/L (10/03/16 1:50 PM) Alk Phos [40-150 61 U/L U/L] (10/03/16 1:50 PM) Bili Total [0.2-1.2 0.3 mg/dL mg/dL] (10/03/16 1:50 PM) 1Result Comment: Multiply eGFR results by 1.21 for race. 2Result Comment: Please note reference range change effective 09/15/2016. Immunizations Given and Recorded Vaccine Date Status Refusal Reason influenza virus vaccine, inactivated 06/30/16 Given influenza virus vaccine, inactivated1 06/12/14 Recorded 1Result Comment: [06/12/2014] See scanned document. Procedures Procedure Date Related Diagnosis Body Site Bunion surgery w/metal pin 2009 Social History Social History Type Response Smoking Status Never smoker Assessment and Plan Extracted from: Title: Office Visit Note Author: Bertha Cummins MD Date: 10/03/16 Assessment/Plan 1.Other specified rheumatoid arthritis, multiple sites She appears overall to be stable. We will continue methotrexate 12.5 mg. She does have some changes in her left foot which may be chronic. We discussed potentially checking her VECTRA DAwhich we will consider her next appointment. Ordered: C-Reactive Protein (CRP) CBC w/ Differential Comprehensive Metabolic Panel 2.Osteopenia She is due for follow-up DEXA scan. She will discuss this with her PCP at her next appointment next week. Ordered: C-Reactive Protein (CRP) CBC w/ Differential Comprehensive Metabolic Panel 3.High risk medication use I will check her blood counts andliver tests. Ordered: C-Reactive Protein (CRP) CBC w/ Differential Comprehensive Metabolic Panel Follow up in 4 months or sooner if needed.
--- OUTSIDE RECORDS SUMMARY | 2016-12-08 05:50 | XMS REPORT | Continuity of Care Document ---
Author Author Bertha Cummins MD [facility] Ambulatory Address [address] [place] [address] Phone Care Team Providers Care Recyclable Products Sorter Name Role Phone Evan Daniels SILVANA Unavailable Payers Payer name Insurance type Covered libertarian ID Authorization(s) Unknown Problems Condition Effective Dates (start - stop) Clinical Status Rheumatoid Arthritis - *Chronic Rheumatoid Arthritis - *Chronic Rheumatoid Arthritis - [...] route every day 400 MG - Active methotrexate sodium 2.5 mg tablet take 4 (10MG) by oral route every week 10 MG - Active folic acid 1 mg tablet take 1 Tablet (1MG) by oral route every day 1 MG - Active Immunizations Vaccine Date Status Comments Unknown Results Test Name Date and Time Measure Units Reference Range Abnormal Flag Comments Unknown Vital Signs Date / Time: Height Weight Pulse Rate Blood Pressure Temperature /08:30:00 66.00 in 123.40 lbs 78 /min 129/75 mm[Hg] 97.8 F Procedures Procedure Date Unknown Encounters Encounter Location Date Patient Visit [facility] Patient Visit [facility] Patient Visit [facility] Patient Visit [facility] Patient Visit [facility] Advance Directives Directive Effective Date Unknown
--- OUTSIDE RECORDS SUMMARY | 2016-12-08 05:50 | XMS REPORT | Referral Summary ---
Author Author [facility] Organization [facility] Address Unknown Phone Unavailable Care Team Providers Care Dolly Driver Name Role Phone Daniels Ashok Primary Care Physician [phone] Encounter [facility] [id number] Date(s): 11/01/15 - 11/01/15 [facility] [address] [place], [place] [address] Discharge Diagnosis: High risk medication use Discharge Diagnosis: Osteopenia Discharge Diagnosis: Rheumatoid arthritis Discharge Disposition: -Home or Self Care Attending Physician: Bertha Cummins MD Admitting Physician: Bertha Cummins MD Vital Signs Most recent to 1 oldest [Reference Range]: Peripheral Pulse 71 bpm Rate [60-100 bpm] (11/01/15 1:46 PM) Blood Pressure 118/67 mmHg [90-140/60-90 mmHg] (11/01/15 1:46 PM) Problem List Condition Effective Dates Status Health Status Informant Anxiety(Confirmed) Resolved Osteopenia(Confirmed Active ) Rheumatoid Active arthritis(Confirmed) Allergies, Adverse Reactions, Alerts No Known Allergies Medications diclofenac sodium 50 mg oral delayed release tablet See Instructions, TAKE ONE TABLET BY MOUTH TWICE A DAY NEEDED WITH FOOD, # 60 tabs, 2 Refill(s), Pharmacy: [facility] #[id number], can hold until next refill needed., TAKE ONE TABLET BY MOUTH TWICE A DAY NEEDED WITH FOOD Start Date: 06/23/15 Status: Ordered folic acid 1 mg oral tablet See Instructions, TAKE TWO TABLETS BY MOUTH ONCE A DAY, # 180 tabs, 3 Refill(s) , Pharmacy: [facility] #[id number], can hold until next refill needed, TAKE TWO TABLETS BY MOUTH ONCE A DAY Start Date: 06/23/15 Status: Ordered methotrexate 2.5 mg oral tablet 10 mg 4 tabs, Oral, qWeek, # 20 tabs, 3 Refill(s), Pharmacy: [facility] # [id number], please note change in dose. deactivate prior., 4 tabs Oral qWeek Start Date: 11/01/15 Status: Ordered Results Hematology Most recent to 1 oldest [Reference Range]: WBC [4.8-10.8 5.2 10*3/uL 10*3/uL] (11/01/15 2:12 PM) RBC [4.00-5.20] 4.40 (11/01/15 2:12 PM) Hgb [12.0-16.0 12.5 gm/dL gm/dL] (11/01/15 2:12 PM) Hct [37.0-47.0 %] 38.7 % (11/01/15 2:12 PM) MCV [82.0-99.0 fL] 88.0 fL (11/01/15 2:12 PM) MCH [27.0-32.0 pg] 28.4 pg (11/01/15 2:12 PM) MCHC [32.0-36.0 32.3 gm/dL gm/dL] (11/01/15 2:12 PM) RDW [11.5-14.5 %] 13.9 % (11/01/15 2:12 PM) Platelet [150-400 260 10*3/uL 10*3/uL] (11/01/15 2:12 PM) MPV [8.8-14.8 fL] 9.5 fL (11/01/15 2:12 PM) Immature 0.0 % Granulocytes (11/01/15 2:12 PM) [0.0-1.0 %] Neutrophils [51-75 70 % %] (11/01/15 2:12 PM) Lymphocytes [20-46 21 % %] (11/01/15 2:12 PM) Monocytes [4-11 %] 9 % (11/01/15 2:12 PM) Eosinophils [0-4 %] 0 % (11/01/15 2:12 PM) Basophils [0-2 %] 0 % (11/01/15 2:12 PM) Neutro Absolute 3.64 10*3 [1.90-7.00 10*3] (11/01/15 2:12 PM) Lymph Absolute 1.09 10*3 [0.80-3.30 10*3] (11/01/15 2:12 PM) [place] Absolute 0.44 10*3 [0.30-1.00 10*3] (11/01/15 2:12 PM) Eos Absolute 0.01 10*3 [0.00-0.50 10*3] (11/01/15 2:12 PM) Baso Absolute 0.01 10*3 [0.00-0.20 10*3] (11/01/15 2:12 PM) Chemistry Most recent to 1 oldest [Reference Range]: Sodium Lvl [135-144 141 mEq/L mEq/L] (11/01/15 2:12 PM) Potassium Lvl 4.2 mEq/L [3.5-5.2 mEq/L] (11/01/15 2:12 PM) Chloride [99-111 106 mEq/L mEq/L] (11/01/15 2:12 PM) CO2 [22-31 mEq/L] 30 mEq/L (11/01/15 2:12 PM) AGAP [3-20] 5 (11/01/15 2:12 PM) BUN [10-20 mg/dL] 12 mg/dL (11/01/15 2:12 PM) Glucose Lvl [70-99 124 mg/dL mg/dL] *HI* (11/01/15 2:12 PM) Creatinine Lvl 0.79 mg/dL [0.57-1.11 mg/dL] (11/01/15 2:12 PM) eGFR [>60 mL/min] >60 mL/min 1 (11/01/15 2:12 PM) Calcium Lvl 10.2 mg/dL [8.9-10.5 mg/dL] (11/01/15 2:12 PM) Albumin Lvl [3.4-4.8 4.6 gm/dL gm/dL] (11/01/15 2:12 PM) Total Protein 7.0 gm/dL [6.2-8.1 gm/dL] (11/01/15 2:12 PM) Globulin [1.8-4.0 2.4 gm/dL gm/dL] (11/01/15 2:12 PM) ALT [0-55 U/L] 18 U/L (11/01/15 2:12 PM) AST [5-34 U/L] 25 U/L (11/01/15 2:12 PM) Alk Phos [40-150 76 U/L U/L] (11/01/15 2:12 PM) Bili Total [0.2-1.2 0.6 mg/dL mg/dL] (11/01/15 2:12 PM) 1Result Comment: Multiply eGFR results by 1.21 for race. Immunizations Vaccine Date Refusal Reason influenza virus vaccine, inactivated1 06/12/14 1Result Comment: [06/12/2014] See scanned document. Procedures Procedure Date Related Diagnosis Body Site Collection of venous blood by venipuncture 11/01/15 Bunion surgery w/metal pin 2008 Social History Social History Type Response Smoking Status Never smoker Assessment and Plan Extracted from: Title: Office Visit Note Author: Bertha Cummins MD Date: 11/01/15 Assessment/Plan 1.Rheumatoid arthritis She is doing well with no active disease. We will decrease the methotrexate to 10 mg. Ifshe has any worsening pain she can let us know. She can continue diclofenac as needed. I will check a CRP today. Ordered: C-Reactive Protein (CRP) CBC w/ Differential Comprehensive Metabolic Panel 2.Osteopenia She will be due for her next bone density next August. Continue weightbearing exercise, calcium and vitamin D. Ordered: C-Reactive Protein (CRP) CBC w/ Differential Comprehensive Metabolic Panel 3.High risk medication use I will check blood counts liver tests today. Otherwise no toxicities noted. Follow-up in 4 months or sooner if needed. Ordered: C-Reactive Protein (CRP) CBC w/ Differential Comprehensive Metabolic Panel
--- OUTSIDE RECORDS SUMMARY | 2016-12-08 05:50 | XMS REPORT | Referral Summary ---
Author Author [facility] Organization [facility] Address Unknown Phone Unavailable Care Team Providers Care Resident Caregiver Name Role Phone Ashok Daniels Primary Care Physician [phone] Encounter [facility] [id number] Date(s): 06/23/15 - 06/23/15 [facility] [address], [place] [address] Discharge Diagnosis: High risk medication use Discharge Diagnosis: Rheumatoid arthritis Discharge Disposition: 01-Home or Self Care Attending Physician: Bertha Cummins MD Admitting Physician: Bertha Cummins MD Referring Physician: Evan Daniels MD Vital Signs Most recent to 1 oldest [Reference Range]: Temperature Oral 36.7 degC [35.8-37.3 degC] (06/23/15 1:29 PM) Peripheral Pulse 70 bpm Rate [60-100 bpm] (06/23/15 1:29 PM) Respiratory Rate 16 br/min [14-20 br/min] (06/23/15 1:29 PM) Blood Pressure 124/80 mmHg [90-140/60-90 mmHg] (06/23/15 1:29 PM) Problem List Condition Effective Dates Status Health Status Informant Anxiety(Confirmed) Active Rheumatoid Active arthritis(Confirmed) Allergies, Adverse Reactions, Alerts No Known Medication Allergies Medications diclofenac sodium 50 mg oral delayed release tablet See Instructions, TAKE ONE TABLET BY MOUTH TWICE A DAY NEEDED WITH FOOD, # 60 tabs, 2 Refill(s), [id number], can hold until next refill needed., TAKE ONE TABLET BY MOUTH TWICE A DAY NEEDED WITH FOOD Start Date: 06/23/15 Status: Ordered folic acid 1 mg oral tablet See Instructions, TAKE TWO TABLETS BY MOUTH ONCE A DAY, # 180 tabs, 3 Refill(s) , Pharmacy: [facility] #[id number], can hold until next refill needed, TAKE TWO TABLETS BY MOUTH ONCE A DAY Start Date: 06/23/15 Status: Ordered methotrexate 2.5 mg oral tablet 12.5 mg 5 tabs, Oral, qWeek, # 25 tabs, 3 Refill(s), Pharmacy: [facility] #[id number], can hold until next refill needed., 5 tabs Oral qWeek Start Date: 06/23/15 Status: Ordered Results Hematology Most recent to 1 oldest [Reference Range]: WBC [4.8-10.8 5.9 10*3/uL 10*3/uL] (06/23/15 1:59 PM) RBC [4.00-5.20] 4.63 (06/23/15 1:59 PM) Hgb [12.0-16.0 13.2 gm/dL gm/dL] (06/23/15 1:59 PM) Hct [37.0-47.0 %] 40.6 % (06/23/15 1:59 PM) MCV [82.0-99.0 fL] 87.7 fL (06/23/15 1:59 PM) MCH [27.0-32.0 pg] 28.5 pg (06/23/15 1:59 PM) MCHC [32.0-36.0 32.5 gm/dL gm/dL] (06/23/15 1:59 PM) RDW [11.5-14.5 %] 17.2 % *HI* (06/23/15 1:59 PM) Platelet [150-400 228 10*3/uL 10*3/uL] (06/23/15 1:59 PM) MPV [8.8-14.8 fL] 9.7 fL (06/23/15 1:59 PM) Immature 0.2 % Granulocytes (06/23/15 1:59 PM) [0.0-1.0 %] Neutrophils [51-75 64 % %] (06/23/15 1:59 PM) Lymphocytes [20-46 23 % %] (06/23/15 1:59 PM) Monocytes [4-11 %] 12 % *HI* (06/23/15 1:59 PM) Eosinophils [0-4 %] 1 % (06/23/15 1:59 PM) Basophils [0-2 %] 0 % (06/23/15 1:59 PM) Neutro Absolute 3.78 10*3 [1.90-7.00 10*3] (06/23/15 1:59 PM) Lymph Absolute 1.36 10*3 [0.80-3.30 10*3] (06/23/15 1:59 PM) Mora Absolute 0.71 10*3 [0.30-1.00 10*3] (06/23/15 1:59 PM) Eos Absolute 0.05 10*3 [0.00-0.50 10*3] (06/23/15 1:59 PM) Baso Absolute 0.02 10*3 [0.00-0.20 10*3] (06/23/15 1:59 PM) Chemistry Most recent to 1 oldest [Reference Range]: Sodium Lvl [135-144 140 mEq/L mEq/L] (06/23/15 1:59 PM) Potassium Lvl 4.0 mEq/L [3.5-5.2 mEq/L] (06/23/15 1:59 PM) Chloride [99-111 104 mEq/L mEq/L] (06/23/15 1:59 PM) CO2 [22-31 mEq/L] 27 mEq/L (06/23/15 1:59 PM) AGAP [3-20] 9 (06/23/15 1:59 PM) BUN [10-20 mg/dL] 11 mg/dL (06/23/15 1:59 PM) Glucose Lvl [70-99 135 mg/dL mg/dL] *HI* (06/23/15 1:59 PM) Creatinine Lvl 0.79 mg/dL [0.57-1.11 mg/dL] (06/23/15 1:59 PM) eGFR [>60 mL/min] >60 mL/min 1 (06/23/15 1:59 PM) Calcium Lvl 9.7 mg/dL [8.9-10.5 mg/dL] (06/23/15 1:59 PM) Albumin Lvl [3.4-4.8 4.2 gm/dL gm/dL] (06/23/15 1:59 PM) Total Protein 6.5 gm/dL [6.2-8.1 gm/dL] (06/23/15 1:59 PM) Globulin [1.8-4.0 2.3 gm/dL gm/dL] (06/23/15 1:59 PM) ALT [0-55 U/L] 20 U/L (06/23/15 1:59 PM) AST [5-34 U/L] 26 U/L (06/23/15 1:59 PM) Alk Phos [40-150 64 U/L U/L] (06/23/15 1:59 PM) Bili Total [0.2-1.2 0.5 mg/dL mg/dL] (06/23/15 1:59 PM) 1Result Comment: Multiply eGFR results by 1.21 for race. Immunizations Vaccine Date Refusal Reason influenza virus vaccine, inactivated1 06/12/14 1Result Comment: [06/12/2014] See scanned document. Procedures Procedure Date Related Diagnosis Body Site Collection of venous blood by venipuncture 06/23/15 Bunion surgery w/metal pin 2009 Social History Social History Type Response Smoking Status Never smoker Assessment and Plan Extracted from: Title: Office Visit Note Author: Bertha Cummins MD Date: 06/23/15 Assessment/Plan 1.Rheumatoid arthritis She is doing well. She may have hada flare in the shoulder but not clear at this time. Currently there is no active disease noted. I will check a CRP today. We will continue the methotrexate 12.5. She takes diclofenac also as needed. Respect to herright 1st MTPdiscussed that she has more persistent pain, we can inject if needed. Ordered: C-Reactive Protein (CRP) CBC w/ Differential Comprehensive Metabolic Panel 2.High risk medication use I will check her blood counts liver tests today. Otherwise no toxicities noted. Follow up in 4monthsor sooner if needed. Ordered: CBC w/ Differential Comprehensive Metabolic Panel
--- OUTSIDE RECORDS SUMMARY | 2016-12-08 05:50 | XMS REPORT | Referral Summary ---
Author Author [facility] Organization [facility] Address Unknown Phone Unavailable Care Team Providers Care Compound Finisher Name Role Phone Ashok Daniels Primary Care Physician [phone] Encounter [facility] [id number] Date(s): 02/22/15 - 02/22/15 [facility] [address], [place] [address] Discharge Diagnosis: Rheumatoid arthritis Discharge Diagnosis: Encounter [...] FOOD, # 60 tabs, 2 Refill(s), Pharmacy: [facility] #[id number], can hold until next refill needed., TAKE ONE TABLET BY MOUTH TWICE A DAY NEEDED WITH FOOD Start Date: 06/23/15 Status: Ordered folic acid 1 mg oral tablet See Instructions, TAKE TWO TABLETS BY MOUTH ONCE A DAY, # 180 tabs, 3 Refill(s) , Pharmacy: [facility] #[id number], can hold until next refill needed, TAKE TWO TABLETS BY MOUTH ONCE A DAY Start Date: 06/23/15 Status: Ordered methotrexate 2.5 mg oral tablet 12.5 mg 5 tabs, Oral, qWeek, # 25 tabs, 3 Refill(s), Pharmacy: [facility] #[id number], can hold until next refill needed., 5 [...] 1.14 10*3 [0.80-3.30 10*3] (02/22/15 8:52 AM) Nolan Absolute 0.59 10*3 [0.30-1.00 10*3] (02/22/15 8:52 [...]
--- OUTSIDE RECORDS SUMMARY | 2016-12-08 05:50 | XMS REPORT | Referral Summary ---
Author Author [facility] Organization [facility] Address Unknown Phone Unavailable Care Team Providers Care Wholesale Parts Salesperson Name Role Phone Daniels Ashok Primary Care Physician [phone] Encounter [facility] [id number] Date(s): 06/30/16 - 06/30/16 [facility] [address] [place], [place] [address] Discharge Diagnosis: Other specified rheumatoid arthritis, multiple sites Discharge Diagnosis: High risk medication use Discharge Disposition: 01-Home or Self Care Attending Physician: Bertha Cummins MD Admitting Physician: Bertha Cummins MD Vital Signs Most recent to 1 oldest [Reference Range]: Peripheral Pulse 66 bpm Rate [60-100 bpm] (06/30/16 9:28 AM) Respiratory Rate 20 br/min [14-20 br/min] (06/30/16 9:28 AM) Blood Pressure 126/64 mmHg [90-140/60-90 mmHg] (06/30/16 9:28 AM) Problem List Condition Effective Dates Status Health Status Informant Anxiety(Confirmed) Resolved Osteopenia(Confirmed Active ) Rheumatoid Active arthritis(Confirmed) Allergies, Adverse Reactions, Alerts No Known Allergies Medications diclofenac sodium 50 mg oral delayed release tablet See Instructions, TAKE ONE TABLET BY MOUTH TWICE A DAY NEEDED WITH FOOD, # 60 tabs, 2 Refill(s), Pharmacy: [facility] #[id number], can hold until next refill needed., TAKE ONE TABLET BY MOUTH TWICE A DAY NEEDED WITH FOOD Start Date: 03/01/16 Status: Ordered folic acid 1 mg oral tablet See Instructions, TAKE TWO TABLETS BY MOUTH DAILY, # 180 tabs, 2 Refill(s), [id number], TAKE TWO TABLETS BY MOUTH DAILY Start Date: 04/26/16 Status: Ordered methotrexate 2.5 mg oral tablet 12.5 mg 5 tabs, Oral, qWeek, please note the change in dose. deactivate prior, # 25 tabs, 3 Refill(s), Pharmacy: [facility] #[id number], please note change in dose. deactivate prior., 5 tabs Oral qWeek,Instr:please note the change in dose. deactivat... Start Date: 03/01/16 Status: Ordered Results Hematology Most recent to 1 oldest [Reference Range]: WBC [4.8-10.8 5.1 10*3/uL 10*3/uL] (06/30/16 9:52 AM) RBC [4.00-5.20] 5.24 *HI* (06/30/16 9:52 AM) Hgb [12.0-16.0 12.9 gm/dL gm/dL] (06/30/16 9:52 AM) Hct [37.0-47.0 %] 41.8 % (06/30/16 9:52 AM) MCV [82.0-99.0 fL] 79.8 fL *LOW* (06/30/16 9:52 AM) MCH [27.0-32.0 pg] 24.6 pg *LOW* (06/30/16 9:52 AM) MCHC [32.0-36.0 30.9 gm/dL gm/dL] *LOW* (06/30/16 9:52 AM) RDW [11.5-14.5 %] 24.0 % *HI* (06/30/16 9:52 AM) Platelet [150-400 269 10*3/uL 10*3/uL] (06/30/16 9:52 AM) MPV [8.8-14.8 fL] 9.9 fL (06/30/16 9:52 AM) Immature 0.2 % Granulocytes (06/30/16 9:52 AM) [0.0-1.0 %] Neutrophils [51-75 57 % %] (06/30/16 9:52 AM) Lymphocytes [20-46 27 % %] (06/30/16 9:52 AM) Monocytes [4-11 %] 15 % *HI* (06/30/16 9:52 AM) Eosinophils [0-4 %] 1 % (06/30/16 9:52 AM) Basophils [0-2 %] 0 % (06/30/16 9:52 AM) Neutro Absolute 2.93 10*3 [1.90-7.00 10*3] (06/30/16 9:52 AM) Lymph Absolute 1.36 10*3 [0.80-3.30 10*3] (06/30/16 9:52 AM) Walker Absolute 0.75 10*3 [0.30-1.00 10*3] (06/30/16 9:52 AM) Eos Absolute 0.07 10*3 [0.00-0.50 10*3] (06/30/16 9:52 AM) Baso Absolute 0.02 10*3 [0.00-0.20 10*3] (06/30/16 9:52 AM) Hypochrom Occasional *ABN* (06/30/16 9:52 AM) Differential Scanned Slide (06/30/16 9:52 AM) Chemistry Most recent to 1 oldest [Reference Range]: Sodium Lvl [135-144 142 mEq/L mEq/L] (06/30/16 9:52 AM) Potassium Lvl 4.2 mEq/L [3.5-5.2 mEq/L] (06/30/16 9:52 AM) Chloride [99-111 107 mEq/L mEq/L] (06/30/16 9:52 AM) CO2 [22-31 mEq/L] 29 mEq/L (06/30/16 9:52 AM) AGAP [3-20] 6 (06/30/16 9:52 AM) BUN [10-20 mg/dL] 15 mg/dL (06/30/16 9:52 AM) Glucose Lvl [70-99 77 mg/dL mg/dL] (06/30/16 9:52 AM) Creatinine Lvl 0.78 mg/dL [0.57-1.11 mg/dL] (06/30/16 9:52 AM) eGFR [>60 mL/min] >60 mL/min 1 (06/30/16 9:52 AM) Calcium Lvl 9.5 mg/dL [8.9-10.5 mg/dL] (06/30/16 9:52 AM) Albumin Lvl [3.4-4.8 4.4 gm/dL gm/dL] (06/30/16 9:52 AM) Total Protein 6.7 gm/dL [6.0-7.6 gm/dL] (06/30/16 9:52 AM) Globulin [1.8-4.0 2.3 gm/dL gm/dL] (06/30/16 9:52 AM) ALT [0-55 U/L] 19 U/L (06/30/16 9:52 AM) AST [5-34 U/L] 25 U/L (06/30/16 9:52 AM) Alk Phos [40-150 66 U/L U/L] (06/30/16 9:52 AM) Bili Total [0.2-1.2 0.7 mg/dL mg/dL] (06/30/16 9:52 AM) 1Result Comment: Multiply eGFR results by 1.21 for race. Immunizations Vaccine Date Refusal Reason influenza virus vaccine, inactivated 06/30/16 influenza virus vaccine, inactivated1 06/12/14 1Result Comment: [06/12/2014] See scanned document. Procedures Procedure Date Related Diagnosis Body Site Collection of venous blood by venipuncture 06/30/16 Bunion surgery w/metal pin 2009 Social History Social History Type Response Smoking Status Never smoker Assessment and Plan Extracted from: Title: Office Visit Note Author: Bertha Cummins MD Date: 06/30/16 Assessment/Plan 1.Other specified rheumatoid arthritis, multiple sites She is overall doing well. She has some stiffness in her toes but denies any pain in association. I will check a CRP. We will continue methotrexate 12.5 mg. Ordered: C-Reactive Protein (CRP) CBC w/ Differential Comprehensive Metabolic Panel 2.High risk medication use I will check her blood counts and liver tests. Ordered: C-Reactive Protein (CRP) CBC w/ Differential Comprehensive Metabolic Panel Follow up in 4 months or sooner if needed
--- OUTSIDE RECORDS SUMMARY | 2016-12-08 05:50 | XMS REPORT | Referral Summary ---
Author Author [facility] Organization [facility] Address Unknown Phone Unavailable Care Team Providers Care Humane Agent Name Role Phone Daniels Ashok Primary Care Physician [phone] Encounter [facility] [id number] Date(s): 02/22/15 - 02/22/15 [facility] [address], [place] [address] Discharge Diagnosis: Rheumatoid arthritis Discharge [...] FOOD, # 60 tabs, 5 Refill(s), eRx: [facility] #[id number], TAKE ONE TABLET BY MOUTH TWICE A DAY NEEDED WITH FOOD Start Date: 01/22/14 Status: Ordered folic acid 1 mg oral tablet See Instructions, TAKE TWO TABLETS BY MOUTH ONCE A DAY, # 180 tabs, eRx: [facility] #[id number], TAKE TWO TABLETS BY MOUTH ONCE A DAY Start Date: 04/20/15 Status: Ordered methotrexate 2.5 mg oral tablet 12.5 mg 5 tabs, Oral, qWeek, # 25 tabs, 1 Refill(s), Pharmacy: [facility] #[id number], Dose decreased to 5 tabs weekly, 5 [...] 1.14 10*3 [0.80-3.30 10*3] (02/22/15 8:52 AM) [place] Absolute 0.59 10*3 [0.30-1.00 10*3] (02/22/15 8:52 [...]
--- OUTSIDE RECORDS SUMMARY | 2016-12-08 05:50 | XMS REPORT | Continuity of Care Document ---
Author Author [facility] Organization [facility] Address Unknown Phone Unavailable Allergies Medications Problems Procedures Results Encounters ACCT No. Visit Date/Time Discharge Status Pt. Type Provider Facility Loc./Unit Complaint [id number] 10/08/2013 08:23:00 10/08/2013 23 :59:59 C[facility] Outpatient [id number] 07/16/2013 08:06:00 07/16/2013 23 :59:59 CLS Outpatient
[2016-12-08 06:07] VITALS: BP 117/73; PULSE 65; RESP 16; TEMP 98.1; O2SAT 99
[2016-12-08 06:08] VITALS: Ht 167.6 cm; Wt 57.7 kg
[2016-12-08] MEDS ORDERED: LIDOCAINE 1% (10mg/ml) 2ml SDV INJ ONE (07:00)
[2016-12-08] MEDS ORDERED: LR 1,000 ML IV SCH (07:00)
--- NOTE | 2016-12-08 08:04 | ANESPREOP ---
Anesthesia Record Date and Time DATE: 12/08/16 TIME: 0700 Proposed Surgical Procedure COLONOSCOPY Allergies: Coded Allergies: No Known Drug Allergies (Verified Allergy, Unknown, 12/08/16) Ht/Wt/BMI Height: 5 ' 6.00 " Weight: 57.700 kg BMI: 20.5 kg/m2 Vital Signs Date Time Temp Pulse Resp B/P Pulse Ox O2 Delivery O2 Flow Rate FiO2 12/08/16 06:07 98.1 65 16 117/73 99 Room Air Medications Inpatient Medications Current Medications Medications (Trade) Dose Ordered Sig/Yaw Start Time Stop Time Status Last Admin Dose Admin Lactated Ringer's (Lactated Ringers) 1,000 ml @ 50 mls/hr Q20H 12/08/16 07:00 12/08/16 06:27 50 MLS/HR Butalb/Acetaminophen/Caffeine (Fioricet Tablet) 1 Tab Tablet, 1 TAB PO PRN, ( Reported) Last Taken: on Unknown Date & Time Calcium Citrate/Vitamin D3 (Calcium Citrate + Caplet) 1 Tab Tablet, 1 TAB PO DAILY, (Reported) Last Taken: on 12/07/16 0800 Cetirizine HCl (Zyrtec) 10 Mg Tablet, 1 TAB PO DAILY PRN for ALLERY SYMPTOMS, (Reported) Last Taken: on 12/06/16 2100 Emollient Base (Pcca Emollient) 1 Gm Cream..g. , 1 GR VAGINALLY BIW, (Reported) Last Taken: on 12/06/16 2100 Excedrin (Excedrin) 1 Tab Tablet, PRN, ( Reported) Last Taken: on Unknown Date & Time Folic Acid (Folic Acid) 1 Mg Tablet, 2 TAB PO DAILY, (Reported) Last Taken: on 12/07/16 0800 Ibuprofen (Ibuprofen) 200 Mg Tablet, PRN, ( Reported) Last Taken: on 12/05/16 0800 Methotrexate Sodium (Methotrexate) 2.5 Mg Tablet, 5 TAB PO WEEKLY, (Reported) Last Taken: on 12/02/16 Currently on Beta Rosalba: No Medical/Surgical History Anesthesia PMH: Reports: Arthritis (RA PER H&P), Headaches (tension), Denies: Anesthesia Reactions, CVA/Stroke/TIA, Cancer, Seizures, Sleep Apnea Smoking Status: Never smoker Use Chewing Tobacco?: No Substance Use Type: does not use Alcohol Intake: none Past Surgical History Orthopedic Surgeries: Yes - L BUNIONECTOMY Abdominal Surgeries: Genitourinary Surgeries: Cardiac Surgeries: Endocrine Surgeries: Reproductive Surgeries: Neurological Surgeries: Ear Surgeries: Nose Surgeries: Throat Surgeries: Other Surgeries: Yes - colonscopy x3 Anesthesia Adverse Reactions: FOUND none Family Hx of Anesthesia Advers: none Hx of Motion Sickness: No Physical Exam Respiratory: Lungs clear Cardiovascular: FOUND Regular rate, rhythm Airway Assessment Mallampati Score: II TMD: 3 Fingerbreadths Neck Extension: Good Overall Assessment: No Airway Concerns ASA: 2 Plan Anesthesia Plan: TIVA Discussion Discussed risks/options/alternatives of anesthesia and questions answered. Patient consents. Nursing pain assessment noted. Attestation Statement Prior to the delivery of any anesthetic medication, I examined the patient, developed the plan, obtained the patient's consent and discussed the risk and benefits of the procedure with the patient/guardian. AARON ALMARAZ CRNA Dec 08, 2016 08:04
[2016-12-08 08:14] VITALS: BP 101/60; PULSE 61; RESP 16; TEMP 97.4; O2SAT 98
[2016-12-08 08:20] VITALS: BP 101/59; PULSE 71; RESP 15; O2SAT 99
[2016-12-08 08:30] VITALS: BP 110/62; PULSE 62; RESP 16; O2SAT 100
[2016-12-08 08:40] VITALS: BP 123/70; PULSE 62; RESP 14; O2SAT 100
--- NOTE | 2016-12-08 08:50 | ANESPO ---
Post-Op Note Date 12/08/16 Time: 08:50 Status Pt Participated in Evaluation: Pt participated in person Vital Signs Date Time Temp Pulse Resp B/P Pulse Ox O2 Delivery O2 Flow Rate FiO2 12/08/16 08:40 62 14 123/70 100 Room Air 12/08/16 08:14 97.4 Respiratory Function: Airway patent, Regular respirations Cardiovascular Function: Regular pulse Mental Status: Alert/oriented Pain Level Intensity: 0 Unable to Assess Pain Due To: Pt Sleeping Hydration: Taking po fluids Complications during Recovery None apparent Follow-Up Instructions Instructions Per Surgeon EKATERINA TAM CRNA Dec 08, 2016 08:50
--- NOTE | 2016-12-08 16:29 | OPNOTEF ---
DATE OF PROCEDURE 12/08/2016 [facility] PREOPERATIVE DIAGNOSIS Screening colonoscopy with family history of colon cancer. POSTOPERATIVE DIAGNOSIS Screening colonoscopy with family history of colon cancer within normal limits. ANESTHESIA TIVA PROCEDURE Colonoscopy. NARRATIVE OF PROCEDURE The patient was prepped with Colyte the evening prior to the procedure. She was placed in the left lateral position. After a benign digital rectal examination, the colonoscope was inserted and advanced to the cecum with cecal landmarks identified. The cecum, ascending colon, transverse colon and sigmoid colon showed no evidence of hemorrhage, mass lesions, ulcerations, polyps, diverticular disease or inflammatory changes. The rectum and anus were clear. The colon was suctioned and the scope was removed. The patient tolerated the procedure well. She was stable post colonoscopy. Followup colonoscopy in five years or sooner as clinically indicated. CELIA
== END 2016-12-08 08:51 | disposition home or self-care (01) ==
LOC: NSC 05:44
DX: Z12.11 Encounter for screening for malignant neoplasm of colon (principal); Z80.0 Family history of malignant neoplasm of digestive organs; J30.2 Other seasonal allergic rhinitis; Z79.899 Other long term (current) drug therapy
CPT/HCPCS: 45378; J7120